=== PATIENT | male | born 1985 | race African-American/Black ===

== ENCOUNTER 2017-04-05 18:31 | Emergency (ER) | payer MEDICAID, OTHER ==
[~2017-04-05] VITALS: Ht 182.9 cm; Wt 77.1 kg
[2017-04-05] MEDS ORDERED: IV D5/ 0.9% NACL 1,000 ML IV ONE (18:58)
--- NOTE | 2017-04-05 18:59 | NUR ---
Patient is AOx4, c/o severe abdominal pains with multiple vomiting & diarrhea episodes for 3 days, respiration:easy, skin warm and dry, afebrile
[2017-04-05] MEDS ORDERED: DICYCLOMINE HCL 10 MG/5 ML UDC LIQ PO ONE (19:00)
[2017-04-05] MEDS ORDERED: ONDANSETRON 4 MG/2 ML VIAL IV ONE (19:00)
[2017-04-05] MEDS ORDERED: KETOROLAC TROMETHAMINE 15 MG INJ IV ONE (19:00)
[2017-04-05] MEDS ORDERED: HYDROMORPHONE 1 MG/1 ML DISP.SYRIN IV ONE (19:00)
[2017-04-05] MEDS ORDERED: HYDROMORPHONE 1 MG/1 ML DISP.SYRIN ONE (19:18)
[2017-04-05] MEDS ORDERED: KETOROLAC TROMETHAMINE 30 MG INJ ONE (19:18)
[2017-04-05] MEDS ORDERED: ONDANSETRON 4 MG/2 ML VIAL ONE (19:18)
[2017-04-05 19:32] LABS: BASOPHILS # (AUTO) 0.1 K/uL (0.0-8.0); BASOPHILS % (AUTO) 0.5 % (0.0-2.0); HEMATOCRIT 51.5 % (40-50); HEMOGLOBIN 16.7 G/DL (14.0-18.0); LYMPHOCYTES # (AUTO) 0.7 K/UL (0.8-4.8); LYMPHOCYTES % (AUTO) 3.3 % (20.5-51.5); MEAN CORPUSCULAR HEMOGLOBIN 23.2 UUG (27.0-31.0); MEAN CORPUSCULAR HGB CONC 33 g/dL (32.0-37.0); MEAN CORPUSCULAR VOLUME 71.6 FL (82.0-92.0); MONOCYTES # (AUTO) 0.3 K/UL (0.1-1.30); MONOCYTES % (AUTO) 1.7 % (0.0-11.0); NEUTROPHILS # (AUTO) 18.7 K/UL (1.8-8.9); NEUTROPHILS % (AUTO) 94.5 % (38.5-71.5); PLATELET COUNT (AUTO) 310 K/UL (150-450); WHITE BLOOD COUNT (AUTO) 19.8 K/UL (4.0-11.2)
[2017-04-05 19:39] LABS: CREATININE 1.7 mg/dL (0.6-1.3); POTASSIUM 4.3 mmol/L (3.5-5.1)
[2017-04-05 19:42] LABS: RED BLOOD CELL COUNT(AUTO) 7.19 MIL/UL (4.7-6.1)
[2017-04-05 19:45] LABS: BILIRUBIN,DIRECT 0.1 mg/dL (0.0-0.2); BILIRUBIN,TOTAL 0.7 mg/dL (0.2-1.0); TOTAL PROTEIN, SERUM 8.6 g/dL (6.4-8.2)
[2017-04-05 19:51] LABS: BAND % (MANUAL) 6 % (0-10); NEUTROPHILS % (MANUAL) 86 % (42-75)
[2017-04-05 19:52] LABS: LYMPHOCYTES % (MANUAL) 3 % (20-40); MONOCYTES % (MANUAL) 5 % (2-10)
[2017-04-05] MEDS ORDERED: DICYCLOMINE HCL 10 MG/5 ML UDC LIQ ONE (19:55)
--- NOTE | 2017-04-05 19:55 | NUR ---
Patient resting in room with no distress noted
--- NOTE | 2017-04-05 20:25 | NUR ---
Patient vomited about 50ml. Dr Andrews aware
[2017-04-05] MEDS ORDERED: IV NORMAL SALINE 1000 ML BAG IV ONE (20:30)
[2017-04-05] MEDS ORDERED: METOCLOPRAMIDE HCL 10 MG/2 ML VIAL IV ONE (20:30)
--- NOTE | 2017-04-05 20:34 | NUR ---
Patient out of unit for ct scan via [facility]
[2017-04-05] MEDS ORDERED: METOCLOPRAMIDE HCL 10 MG/2 ML VIAL ONE (20:43)
--- NOTE | 2017-04-05 20:48 | NUR ---
patient back from ct scan with no distress noted
--- NOTE | 2017-04-05 21:49 | NUR ---
Called patient's insurance for possible transfer to [facility] for admission. Waiting fot Case management to call back
--- NOTE | 2017-04-05 22:25 | NUR ---
Shira manager graphic from [facility] will transfer to [facility] [employer]. Waiting for transfer info. Dr Love [phone] will be accepting patient
--- NOTE | 2017-04-05 23:23 | NUR ---
Called benjamin to for transfer to [facility] Room [id number].
[2017-04-06] MEDS ORDERED: PIPERACILLIN SODIUM/TAZOBACTAM 3.375 G in IV DEXTROSE 5% 50 ML IV ONE (00:15)
[2017-04-06] MEDS ORDERED: PIPERACILLIN/TAZOBACTAM/D5W 50 ML IV ONE (00:24)
--- NOTE | 2017-04-06 00:30 | NUR ---
Gave SBAR report to Karlee Rosado from [facility]
--- NOTE | 2017-04-06 00:39 | NUR ---
Gave SBAR report to [facility] crew who will take patient to [facility]
--- NOTE | 2017-04-06 00:48 | NUR ---
Transfered to [facility] via [facility] trasnportation with no distress noted
== END 2017-04-06 00:49 | disposition short-term general hospital (02) ==
LOC: ER 18:32
DX: K56.609 Unspecified intestinal obstruction, unspecified as to partial versus complete obstruction (principal); F17.200 Nicotine dependence, unspecified, uncomplicated
CPT/HCPCS: 36415; 83690; 85025; A4663; J1170; J1885; J2405; J2543; J2765; J7030; J7042